=== PATIENT | female | born 1990 | race Two or more races ===

== ENCOUNTER 2017-04-03 20:37 | Emergency (ER) | payer MEDICAID, OTHER ==
[~2017-04-03] VITALS: Ht 162.6 cm; Wt 90.9 kg
[2017-04-03 20:38] VITALS: BP 127/79
[2017-04-03] MEDS ORDERED: KETOROLAC 30 MG/1 ML IM ONE (21:00)
[2017-04-03] MEDS ORDERED: KETOROLAC 30 MG/1 ML ONE (21:02)
== END 2017-04-03 22:09 | disposition home or self-care (01) ==
LOC: ED 21:30
DX: S46.011A Strain of muscle(s) and tendon(s) of the rotator cuff of right shoulder, initial encounter (principal); M77.9 Enthesopathy, unspecified; X58.XXXA Exposure to other specified factors, initial encounter; Y93.89 Activity, other specified; Y92.89 Other specified places as the place of occurrence of the external cause; Y99.8 Other external cause status
CPT/HCPCS: 73030; 96372; 99284; J1885

== ENCOUNTER 2017-04-04 11:07 | Emergency (ER) | payer OTHER ==
[~2017-04-04] VITALS: Ht 162.6 cm; Wt 91.2 kg
[2017-04-04] MEDS ORDERED: IBUPROFEN 200 MG TABLET ONE (11:56)
[2017-04-04] MEDS ORDERED: CYCLOBENZAPRINE 10 MG TABLET ONE (11:57)
[2017-04-04] MEDS ORDERED: CYCLOBENZAPRINE 10 MG TABLET PO ONE (12:00)
[2017-04-04] MEDS ORDERED: IBUPROFEN 200 MG TABLET PO ONE (12:00)
[2017-04-04 12:31] VITALS: BP 122/77
== END 2017-04-04 12:33 | disposition home or self-care (01) ==
LOC: ED 11:20
DX: S43.421A Sprain of right rotator cuff capsule, initial encounter (principal); X58.XXXA Exposure to other specified factors, initial encounter; Y93.89 Activity, other specified; Y92.89 Other specified places as the place of occurrence of the external cause; Y99.8 Other external cause status
CPT/HCPCS: 99283